=== PATIENT | female | born 1975 | race Caucasian/White ===

== ENCOUNTER 2024-07-28 12:04 | Emergency (ER) | payer BC ==
[2024-07-28] MEDS ORDERED: KETOROLAC 30 MG/ML INJ ONE (13:17)
[2024-07-28] MEDS ORDERED: ONDANSETRON 4 MG/2 ML VIAL ONE (13:17)
--- NOTE | 2024-07-28 13:17 | ER ---
Nurse's Notes [facility] Name: Neyda Yeh Age: 49 yrs Sex: Female : 1975 Arrival Date: 07/28/2024 Time: 12:04 Bed 3 Private MD: Diagnosis: Fall on same level, unspecified;Displaced trimalleolar fracture of unspecified lower leg, initial encounter for closed fracture-dislocate, reduced Presentation: 07/28 12:09 Chief complaint: EMS states: MECHANICAL FALL, R ANKLE DEFORMITY, -LOC, +HEAD STRIKE. bp Coronavirus screen: At this time, the client does not indicate any symptoms associated with coronavirus-19. Ebola Screen: No symptoms or risks identified at this time. Initial Sepsis Screen: Does the patient meet any 2 criteria? No. Patient's initial sepsis screen is negative. Does the patient have a suspected source of infection? No. Patient's initial sepsis screen is negative. Risk Assessment: Do you want to hurt yourself or someone else? Patient reports no desire to harm self or others. Onset of symptoms is unknown. Care prior to arrival: Medication(s) given: 100 MCG FENTANYL IV initiated. 20 GA, in the right antecubital area. 12:09 Method Of Arrival: EMS: [facility] bp 12:09 Acuity: KRISTIN 3 bp Triage Assessment: 12:11 General: Appears in no apparent distress. uncomfortable, obese, Behavior is bp cooperative, appropriate for age, anxious. Pain: Complains of pain in anterior aspect of right ankle. EENT: No deficits noted. Neuro: No deficits noted. Cardiovascular: No deficits noted. Respiratory: No deficits noted. GI: No signs and/or symptoms were reported involving the gastrointestinal system. : No signs and/or symptoms were reported regarding the genitourinary system. Derm: No deficits noted. Musculoskeletal: Bony deformity noted of anterior aspect of right ankle. Historical: - Allergies: 12:11 No Known Drug Allergies; bp - Home Meds: 12:11 gabapentin oral [Active]; Lexapro Oral [Active]; bp - PMHx: 12:11 Anxiety; Depressive disorder; bp - Immunization history:: Adult Immunizations up to date. - Infectious Disease History:: Denies. - Social history:: Smoking status: Patient denies any tobacco usage or history of. Screenin:10 [facility] ED Fall Risk Assessment (Adult) History of falling in the last 3 months, bp including since admission Yes- single mechanical fall (1 pt) Confusion or Disorientation No (0 pts) Intoxicated or Sedated No (0 pts) Impaired Gait No (0 pts) Mobility Assist Device Used No (0 pt) Altered Elimination No (0 pt) Score/Fall Risk Level 0 - 2 = Low Risk Oriented to surroundings. Abuse screen: Denies threats or abuse. Denies injuries from another. Nutritional screening: No deficits noted. Tuberculosis screening: No symptoms or risk factors identified. Assessment: 12:10 General: Appears in no apparent distress. Behavior is calm, cooperative, appropriate bp for age. 14:45 Reassessment: PT DWAYNE WITH EMS. bp Vital Signs: 12:09 BP 164 / 100; Pulse 78; Resp 18; Temp 98.4(O); Pulse Ox 98% on R/A; Weight 104.33 kg; em1 Height 5 ft. 4 in. ; Pain 10/10; 12:09 BP 155 / 95; Pulse 87; bp 14:59 BP 166 / 80; Pulse 86; Resp 15; Pulse Ox 100% ; bp 12:09 Body Mass Index 39.48 (104.33 kg, 162.56 cm) em1 12:09 Pain Scale: Adult em1 ED Course: 12:08 Patient arrived in ED. bp 12:09 Jorje Johnston MD is Attending Physician. sofía 12:10 Triage completed. bp 12:10 Patient has correct armband on for positive identification. bp 12:10 Maintain EMS IV. Dressing intact. Good blood return noted. Site clean \T\ dry. Gauge \T\ bp site: 20 GA RAC. 12:11 Arm band placed on. bp 12:30 Orthoglass splint: Posterior short lleg splint applied on right leg. bp 13:02 Seferino Barba, BRANDYN is Primary Nurse. bp 13:12 Ankle Right 3 View XRAY In Process Unspecified. EDMS 13:[address] Johnston with Nancy from the [facility]. 13:29 administrative approval given by Lorri Guo Rn/ patient has been accepted to [facility] ED/ Dr. Robel Andrade has accepted the patient in transfer without conference with Dr. Johnston/ report to be called to [phone]. 13:50 CT Head Brain wo Cont In Process Unspecified. EDMS Administered Medications: 13:15 Drug: NS 0.9% IV 1000 ml IV at 1000 ml once; to be given as a bolus over 60 minutes bp Route: IV; Rate: 1000 ml; Site: right antecubital; 15:00 Follow up: IV Status: Completed infusion bp 13:15 Drug: morphine IVP or IV 4 mg IVP once over 4 mins Route: IVP; Infused Over: 4 mins; bp Site: right antecubital; 15:00 Follow up: Response: No adverse reaction bp 13:15 Drug: Ondansetron IVP 4 mg IVP once; over 2 minutes Route: IVP; Site: right antecubital;bp 15:00 Follow up: Response: No adverse reaction bp 13:41 Drug: Ketorolac IVP 15 mg IVP once Route: IVP; Site: right antecubital; bp 15:00 Follow up: Response: No adverse reaction bp Outcome: 13:16 ER care complete, transfer ordered by MD. gore 14:55 Patient left the ED. ll1 14:58 Transferred by ground EMS to [facility], Transfer form completed. bp 14:58 Condition: stable 14:58 Instructed on the need for transfer, Signatures: Dispatcher [employer] EDMS Jorje Johnston MD MD cha Martinez, [facility] Seferino Barba, RN RN Agata Ji Lynsay, RN RN ll1
--- NOTE | 2024-07-28 13:17 | EDPHYS ---
Physician Documentation [facility] Name: Neyda Yeh Age: 49 yrs Sex: Female : 1975 Arrival Date: 07/28/2024 Time: 12:04 Bed 3 Private MD: ED Physician Jorje Johnston HPI: 07/28 13:08 This 49 yrs old Female presents to ER via EMS with complaints of Fall Injury. [facility] 13:08 Details of fall: The patient fell from an upright position, while standing, while sofía walking. Onset: The symptoms/episode began/occurred just prior to arrival. Associated injuries: The patient sustained right ankle, right Achilles and anterior aspect of right ankle. Severity of symptoms: At their worst the symptoms were moderate. The patient has not experienced similar symptoms in the past. Historical: - Allergies: 12:11 No Known Drug Allergies; bp - Home Meds: 12:11 gabapentin oral [Active]; Lexapro Oral [Active]; bp - PMHx: 12:11 Anxiety; Depressive disorder; bp - Immunization history:: Adult Immunizations up to date. - Infectious Disease History:: Denies. - Social history:: Smoking status: Patient denies any tobacco usage or history of. ROS: 13:09 Constitutional: Negative for fever, chills, and weight loss, Eyes: Negative for injury, sofía pain, redness, and discharge, ENT: Negative for injury, pain, and discharge, Neck: Negative for injury, pain, and swelling, Cardiovascular: Negative for chest pain, palpitations, and edema, Respiratory: Negative for shortness of breath, cough, wheezing, and pleuritic chest pain, Abdomen/GI: Negative for abdominal pain, nausea, vomiting, diarrhea, and constipation, Back: Negative for injury and pain, : Negative for injury, bleeding, discharge, and swelling, Skin: Negative for injury, rash, and discoloration, Neuro: Negative for headache, weakness, numbness, tingling, and seizure, Psych: Negative for depression, anxiety, suicide ideation, homicidal ideation, and hallucinations, Allergy/Immunology: Negative for hives, rash, and allergies, Endocrine: Negative for neck swelling, polydipsia, polyuria, polyphagia, and marked weight changes, Hematologic/Lymphatic: Negative for swollen nodes, abnormal bleeding, and unusual bruising, 13:09 MS/extremity: Positive for injury or acute deformity, decreased range of motion, of the right ankle and anterior aspect of right ankle, Exam: 13:09 Constitutional: This is a well developed, well nourished patient who is awake, alert, sofía and in no acute distress. Head/Face: Normocephalic, atraumatic. Eyes: Pupils equal round and reactive to light, extra-ocular motions intact. Lids and lashes normal. Conjunctiva and sclera are non-icteric and not injected. Cornea within normal limits. Periorbital areas with no swelling, redness, or edema. ENT: Nares patent. No nasal discharge, no septal abnormalities noted. Tympanic membranes are normal and external auditory canals are clear. Oropharynx with no redness, swelling, or masses, exudates, or evidence of obstruction, uvula midline. Mucous membranes moist. Neck: Trachea midline, no thyromegaly or masses palpated, and no cervical lymphadenopathy. Supple, full range of motion without nuchal rigidity, or vertebral point tenderness. No Meningismus. Chest/axilla: Normal chest wall appearance and motion. Nontender with no deformity. No lesions are appreciated. Cardiovascular: Regular rate and rhythm with a normal S1 and S2. No gallops, murmurs, or rubs. Normal PMI, no JVD. No pulse deficits. Respiratory: Lungs have equal breath sounds bilaterally, clear to auscultation and percussion. No rales, rhonchi or wheezes noted. No increased work of breathing, no retractions or nasal flaring. Abdomen/GI: Soft, non-tender, with normal bowel sounds. No distension or tympany. No guarding or rebound. No evidence of tenderness throughout. Back: No spinal tenderness. No costovertebral tenderness. Full range of motion. Skin: Warm, dry with normal turgor. Normal color with no rashes, no lesions, and no evidence of cellulitis. Neuro: Awake and alert, GCS 15, oriented to person, place, time, and situation. Cranial nerves II-XII grossly intact. Motor strength 5/5 in all extremities. Sensory grossly intact. Cerebellar exam normal. Normal gait. Psych: Awake, alert, with orientation to person, place and time. Behavior, mood, and affect are within normal limits. 13:09 Musculoskeletal/extremity: Extremities: grossly normal except: noted in the right ankle, right Achilles and anterior aspect of right ankle: decreased ROM, deformity, pain, swelling, tenderness, Vital Signs: 12:09 BP 164 / 100; Pulse 78; Resp 18; Temp 98.4(O); Pulse Ox 98% on R/A; Weight 104.33 kg; em1 Height 5 ft. 4 in. ; Pain 10/10; 12:09 BP 155 / 95; Pulse 87; bp 14:59 BP 166 / 80; Pulse 86; Resp 15; Pulse Ox 100% ; bp 12:09 Body Mass Index 39.48 (104.33 kg, 162.56 cm) em1 12:09 Pain Scale: Adult em1 MDM: 12:09 Medical Screening Exam initiated sofía 13:10 Differential diagnosis: dislocation, closed fracture, fracture, sprain. Differential sofía diagnosis: closed head injury, contusion, fracture, multiple trauma, sprain, strain. Data reviewed: vital signs, nurses notes, lab test result(s), radiologic studies, plain films. Consideration of Admission/Observation Escalation of care including admission/observation considered. I considered the following discharge prescriptions or medication management in the emergency department Medications were administered in the Emergency Department. See MAR. Independent interpretation of the following test(s) in the Emergency Department X-Ray: My interpretation is right ankle. Test considered but Not performed: EKG: no ekg. Historians other than the Patient: Spouse/Significant Other: . Care significantly affected by the following chronic conditions: Obesity, depression, anxiety. 07/28 12:49 Order name: CBC with Diff [facility] 07/28 12:49 Order name: Comprehensive Metabolic Panel [facility] 07/28 13:41 Order name: Manual Differential EDMS 07/28 12:14 Order name: CT Head Brain wo Cont bp 07/28 12:14 Order name: Ankle Right 3 View XRAY bp 07/28 12:50 Order name: Splint - Ankle: Posterior; Complete Time: 13:02 sofía 07/28 12:50 Order name: Ice pack; Complete Time: 13:40 [facility] Administered Medications: 13:15 Drug: NS 0.9% IV 1000 ml IV at 1000 ml once; to be given as a bolus over 60 minutes bp Route: IV; Rate: 1000 ml; Site: right antecubital; 15:00 Follow up: IV Status: Completed infusion bp 13:15 Drug: morphine IVP or IV 4 mg IVP once over 4 mins Route: IVP; Infused Over: 4 mins; bp Site: right antecubital; 15:00 Follow up: Response: No adverse reaction bp 13:15 Drug: Ondansetron IVP 4 mg IVP once; over 2 minutes Route: IVP; Site: right antecubital;bp 15:00 Follow up: Response: No adverse reaction bp 13:41 Drug: Ketorolac IVP 15 mg IVP once Route: IVP; Site: right antecubital; bp 15:00 Follow up: Response: No adverse reaction bp Disposition Summary: 07/28/24 13:16 Transfer Ordered Notes: Transfer Location: [facility] Reason: Higher level of care sofía Condition: Stable sofía Problem: new sofía Symptoms: have improved sofía Accepting Physician: to [facility](07/28/24 14:55) ll1 Diagnosis - Fall on same level, unspecified sofía - Displaced trimalleolar fracture of unspecified lower leg, initial encounter for sofía closed fracture - dislocate, reduced Forms: - Medication Reconciliation Form sofía - SBAR form sofía Signatures: Dispatcher [employer] EDJorje Long MD MD cha Peltier, Brian, RN RN Gay Rodriguez RN RN ll1 Corrections: (The following items were deleted from the chart) 14:55 13:16 to [facility] sofía ll1
[2024-07-28] MEDS ORDERED: NA CHLORIDE 0.9% 1,000 ML ONE (13:18)
[2024-07-28] MEDS ORDERED: MORPHINE 4 MG/ML SYR ONE (13:18)
--- NOTE | 2024-07-28 13:32 | RAD REPORT ---
EXAMINATION: Ankle Right 3 View CLINICAL INDICATION: Female, 49 years old. DEFORMITY COMPARISON: No prior exam. FINDINGS: Trimalleolar fracture identified. Mild displacement of the distal fibular, medial malleolar, and post erior malleolar fractures. The ankle mortise is maintained. Cast material present. No definite acute fracture. IMPRESSION: No acute osseous abnormality. Presumed known trimalleolar fracture which may be acute or subacute. No comparisons available.
[2024-07-28 13:38] LABS: Absolute Basophils 0.1 K/uL (0-0.5); Absolute Lymphocytes (CBC) 0.9 K/uL (0.7-4.9); Absolute Monocytes 0.6 K/uL (0.1-1.3); Absolute Neutrophil 10.3 K/uL (1.8-8.0); Basophils % 0.6 % (0-1.3); Eosinophils % 0.4 % (0-4.4); Hematocrit 41.3 % (36.0-45.0); Lymphocytes % 7.6 % (15.3-44.8); MCH 30.7 pg (27.0-35.0); MCV 90.2 fL (80-100); MPV 6.8 fL (7.6-11.3); Monocytes % 4.6 % (3.3-12.3); Neutrophils % 86.8 % (41.7-73.7); Platelets 336 thou/uL (152-406); RBC Red Blood Cell Count 4.58 M/uL (3.86-4.86); Red Cell Distribution Width 13.9 % (12.1-15.2)
--- NOTE | 2024-07-28 13:53 | RAD REPORT ---
EXAMINATION: CT HEAD WITHOUT CONTRAST CLINICAL INDICATION: Female, 49 years old.TRAUMA TECHNIQUE: Axial CT images from the skull base to the vertex without intravenous contrast. Coronal an d sagittal reformatted images were created from the data set. One or more of the following dose reduction techniques were used: Automated exposure control, adjustment of the mA and/or kV according to patient size, and/or iterative reconstruction. Unless otherwise specified, incidental findings do not require dedicated imaging follow-up. [id number]. COMPARISON: No prior exam. FINDINGS: INTRACRANIAL: No acute intracranial hemorrhage. No hydrocephalus. No mass effect or midline shift. No significant white matter diseaseMild cerebral atrophy. VASCULATURE: No visualized abnormalities in the arteries or dural venous sinuses. SCALP/SKULL: No significant soft tissue or osseous abnormalities. SINUSES: The visualized paranasal sinuses and mastoid air cells are predominantly clear. IMPRESSION: No acute intracranial abnormality.
[2024-07-28 14:03] LABS: Albumin 3.6 g/dL (3.4-5.0); Albumin/Globulin Ratio 0.9 (1.1-1.8); Anion Gap 8.2 mEq/L (5.0-15.0); Bilirubin Total 0.4 mg/dL (0.2-1.0); Globulin 3.8 g/dL (2.3-3.5); Potassium 4.2 mEq/L (3.5-5.1); Protein, Total 7.4 g/dL (6.4-8.2)
[2024-07-28 14:59] VITALS: BP 155/95; TEMP 98.4; O2SAT 98
[2024-07-28 15:18] LABS: Differential Total Cells Count 100; Lymphocytes 12 % (15-42); Monocytes 5 % (0-10); Segmented Neutrophils 83 % (40-80)
[2024-07-28 15:29] LABS: Platelet Estimate ADEQ
[2024-07-28 15:32] LABS: Blood Morphology Comment NOT SEEN (NOT SEEN)
== END 2024-07-28 14:55 | disposition short-term general hospital (02) ==
LOC: ER 12:04
PROC: 2W3QX1Z Immobilization of Right Lower Leg using Splint (ICD-10-PCS; principal; 2024-07-28)
DX: S82.851A Displaced trimalleolar fracture of right lower leg, initial encounter for closed fracture (principal); W18.30XA Fall on same level, unspecified, initial encounter
CPT/HCPCS: 96361; 85025; 36415; 80053; 70450; 73610; 96375; 96374; 99285; 29515; J2405; J7030